=== PATIENT | female | born 1965 | race Caucasian/White ===

== ENCOUNTER → 2020-07-16 | Outpatient (CLI) | payer BC ==
--- NOTE | 2020-07-19 12:10 | RAD ---
EXAM: Bilateral screening mammogram. HISTORY: 54-year-old female presents for screening mammography. TECHNIQUE: Full-field digital craniocaudal and mediolateral oblique views of both breasts are obtaine d for evaluation. Computer aided detection was applied. COMPARISON: 07/15/2015 and 07/16/2017 BREAST PARENCHYMAL DENSITY: Level C - Heterogeneously dense. FINDINGS: There is no new suspicious mass, microcalcification or region of architectural distortion. There are stable areas of asymmetry within both breasts when allowing for differences in technique. IMPRESSION: BI-RADS Category 2: Benign finding(s). RECOMMENDATION: Annual mammography is recommended. If your mammogram demonstrates that you have dense breast tissue, which could hide abnormalities, and if you have other risk factors for breast cancer that have been identified, you might benefit from s upplemental screening tests that may be suggested by your ordering physician. Dense breast tissue, i n and of itself, is a relatively common condition. This information is not provided to cause undue c oncern, but rather to raise your awareness and to promote discussion with your physician regarding th e presence of other risk factors, in addition to dense breast tissue. A report of your mammography re sults will be sent to you and your physician. You should contact your physician if you have any ques tions or concerns regarding this report. Mammography is a sensitive method for finding small breast cancers, but it does not detect them all a nd is not a substitute for careful clinical examination. A negative mammogram does not negate a clin ically suspicious finding and should not result in delay in biopsying a clinically suspicious abnorma lity. PQRS compliance statement - Patient information was entered into a reminder system with a target due date for the next mammogram. "Our facility is accredited by the [employer] Mammography Program." Electronically signed by: Marissa Pro MD (07/19/2020 12:07 PM) [id number]
== END ==
LOC: MAMMO 10:08
PROVIDERS: ATTEND Family Medicine
DX: Z12.31 Encounter for screening mammogram for malignant neoplasm of breast (principal); N64.89 Other specified disorders of breast
CPT/HCPCS: 77067

== ENCOUNTER 2021-01-14 14:39 | Inpatient (IN) | payer BC ==
[~2021-01-14] VITALS: Ht 162.6 cm; Wt 82.1 kg
[2021-01-14] MEDS ORDERED: DEXAMETHASONE SOD PHOS 10 MG/ML VIAL. ONE (15:12)
[2021-01-14] MEDS ORDERED: DEXAMETHASONE SOD PHOS 10 MG/ML VIAL. IVP ONE (15:15)
--- NOTE | 2021-01-14 15:18 | RAD ---
Single view of the chest. 01/14/2021 3:05 PM Indication: Reason: cough / Spl. Instructions: / History: Comparison: None Findings: There are patchy interstitial and alveolar infiltrates throughout the bilateral lungs. The finding is concerning for an atypical or viral infectious process. Radiographic follow-up to ensure c omplete resolution recommended. Heart size is normal. Bony thorax is intact. No pneumothorax or effus ion is seen. IMPRESSION: Patchy interstitial alveolar infiltrates concerning for atypical or viral infectious proc ess. Short-term radiographic follow-up recommended. Electronically signed by: Joey Cruz MD (01/14/2021 3:16 PM) [id number]
[2021-01-14] MEDS ORDERED: IOHEXOL 350 MG/ML 100 ML VIAL. ONE (15:24)
[2021-01-14] MEDS ORDERED: IOHEXOL 350 MG/ML 100 ML VIAL. IV ONE (15:30)
--- NOTE | 2021-01-14 15:33 | PHYS DOC ---
Past History Past Medical History: Hypertension (CAROLYN LOZANO APRN) Past Surgical History: No Surgical History (CAROLYN LOZANO APRN) Smoking: Non-smoker Alcohol Use: Occasionally Drug Use: None (CAROLYN LOZANO APRN) General Adult EDM: Chief Complaint: FEVER HPI: HPI: Patient is a 55-year-old female that presents today with cough, shortness of air, and fever and chills since Sunday, January 05. Patient states she started feeling bad last Sunday having cough and chills over the past 9 days she has had increased weakness and fatigue, patient states she has a cough and it is productive with a thick yellow sputum. Patient is current oxygen saturation is 87% on room air, patient has mild amount of increased work of breathing no retractions or nasal flaring noted. (CAROLYN LOZANO APRN) Review of Systems: Review of Systems: Constitutional: chills Eyes: Denies change in visual acuity HENT: Denies nasal congestion or sore throat Respiratory: cough or shortness of breath Cardiovascular: Denies chest pain or edema GI: Denies abdominal pain, nausea, vomiting, bloody stools or diarrhea : Denies dysuria Musculoskeletal: Denies back pain or joint pain Integument: Denies rash Neurologic: General weakness Endocrine: Denies polyuria or polydipsia Lymphatic: Denies swollen glands Psychiatric: Denies depression or anxiety (CAROLYN LOZANO APRN) Current Medications: Current Meds: Current Medications Medications (Trade) Dose Ordered Sig/Delbert Start Time Stop Time Status Last Admin Dose Admin Dexamethasone Sodium Phosphate (Decadron) 10 mg STK-MED ONCE 01/14/21 15:12 01/14/21 15:13 DC Iohexol (Omnipaque 350 Mg/ml) 100 ml STK-MED ONCE 01/14/21 15:24 01/14/21 15:24 DC (CAROLYN LOZANO APRN) Allergies: Allergies: Allergies Coded Allergies Type Severity Reaction Last Updated Verified No Known Drug Allergies 01/14/21 No (CAROLYN LOZANO APRN) Physical Exam: PE: Constitutional: Well-nourished female, moderate distress, some increased work of breathing noted, was able to talk in complete sentences HENT: Normocephalic, atraumatic, bilateral external ears normal, oropharynx dry, no oral exudates, nose normal. [] Eyes: PERRLA, EOMI, conjunctiva normal, no discharge. [] Neck: Normal range of motion, no tenderness, supple, no stridor. [] Cardiovascular:Heart rate regular rhythm, no murmur [] Lungs & Thorax: Right lung sounds coarse with diminished in the bases, left lung sounds are coarse as well Abdomen: Bowel sounds normal, soft, no tenderness, no masses, no pulsatile masses. [] Skin: Warm, dry, no erythema, no rash. [] Back: No tenderness, no CVA tenderness. [] Extremities: No tenderness, no cyanosis, no clubbing, ROM intact, no edema. [] Neurologic: Alert and oriented X 3, normal motor function, normal sensory functi on, no focal deficits noted. [] Psychologic: Affect flat, judgement normal, mood normal. [] (CAROLYN LOZANO APRN) Current Patient Data: Labs: Laboratory Tests Test 01/14/21 15:20 01/14/21 15:25 White Blood Count 6.6 x10^3/uL Red Blood Count 4.97 x10^6/uL Hemoglobin 14.5 g/dL Hematocrit 42.4 % Mean Corpuscular Volume 85 fL Mean Corpuscular Hemoglobin 29 pg Mean Corpuscular Hemoglobin Concent 34 g/dL Red Cell Distribution Width 13.7 % Platelet Count 240 x10^3/uL Neutrophils (%) (Auto) 81 % Lymphocytes (%) (Auto) 14 % Monocytes (%) (Auto) 4 % Eosinophils (%) (Auto) 0 % Basophils (%) (Auto) 1 % Neutrophils # (Auto) 5.3 x10^3uL Lymphocytes # (Auto) 0.9 x10^3/uL Monocytes # (Auto) 0.3 x10^3/uL Eosinophils # (Auto) 0.0 x10^3/uL Basophils # (Auto) 0.0 x10^3/uL Sodium Level 129 mmol/L Potassium Level 2.9 mmol/L Chloride Level 87 mmol/L Carbon Dioxide Level 28 mmol/L Anion Gap 14 Blood Urea Nitrogen 21 mg/dL Creatinine 1.3 mg/dL Estimated GFR (Cockcroft-Gault) 42.8 Glucose Level 140 mg/dL Calcium Level 8.8 mg/dL Influenza Type A (Rapid) Negative Influenza Type B (Rapid) Negative SARS-CoV-2 Antigen (Rapid) Positive Current Medications Medications (Trade) Dose Ordered Sig/Delbert Route PRN Reason Start Time Stop Time Status Last Admin Dose Admin Dexamethasone Sodium Phosphate (Decadron) 10 mg 1X ONCE IVP 01/14/21 15:15 01/14/21 15:16 DC 01/14/21 15:31 Dexamethasone Sodium Phosphate (Decadron) 10 mg STK-MED ONCE .ROUTE 01/14/21 15:12 01/14/21 15:13 DC Iohexol (Omnipaque 350 Mg/ml) 100 ml 1X ONCE IV 01/14/21 15:30 01/14/21 15:31 DC 01/14/21 15:41 Iohexol (Omnipaque 350 Mg/ml) 100 ml STK-MED ONCE .ROUTE 01/14/21 15:24 01/14/21 15:24 DC Sodium Chloride 1,000 ml @ 1,000 mls/hr 1X ONCE IV 01/14/21 16:00 01/14/21 16:59 DC 01/14/21 16:23 Ceftriaxone Sodium 1 gm/ Sodium Chloride 50 ml @ 100 mls/hr 1X ONCE IV 01/14/21 16:15 01/14/21 16:44 DC 01/14/21 16:24 Ceftriaxone Sodium (Rocephin) 1 gm STK-MED ONCE .ROUTE 01/14/21 16:15 01/14/21 16:15 DC Sodium Chloride 50 ml @ As Directed STK-MED ONCE .ROUTE 01/14/21 16:15 01/14/21 16:15 DC Potassium Chloride (Klor-Con) 40 meq 1X ONCE PO 01/14/21 16:30 01/14/21 16:31 DC 01/14/21 16:26 Vital Signs: Vital Signs Date Time Temp Pulse Resp B/P (MAP) Pulse Ox O2 Delivery O2 Flow Rate FiO2 01/14/21 18:25 87 20 115/77 (90) 97 Nasal Cannula 2.0 01/14/21 17:55 88 20 95/46 (62) 94 Nasal Cannula 2.0 01/14/21 17:26 88 20 114/79 (91) 97 Nasal Cannula 2.0 01/14/21 16:56 83 20 110/76 (87) 97 Nasal Cannula 2.0 01/14/21 16:26 86 20 114/75 (88) 96 Nasal Cannula 2.0 01/14/21 15:56 87 20 97/67 (77) 92 Nasal Cannula 2.0 01/14/21 15:48 89 20 107/68 (81) 91 Nasal Cannula 2.0 01/14/21 14:55 98.3 95 20 121/73 (89) 91 Room Air Vital Signs Date Time Temp Pulse Resp B/P (MAP) Pulse Ox O2 Delivery O2 Flow Rate FiO2 01/14/21 14:55 98.3 95 20 121/73 (89) 91 Room Air (CAROLYN LOZANO CASTING MACHINE SERVICE OPERATOR) EKG: EKG: [] (CAROLYN LOZANO CASTING MACHINE SERVICE OPERATOR) Radiology/Procedures: Radiology/Procedures: PROCEDURE: CHEST AP ONLY Single view of the chest. 01/14/2021 3:05 PM Indication: Reason: cough / Spl. Instructions: / History: Comparison: None Findings: There are patchy interstitial and alveolar infiltrates throughout the bilateral lungs. The finding is concerning for an atypical or viral infectious process. Radiographic follow-up to ensure complete resolution recommended. Heart size is normal. Bony thorax is intact. No pneumothorax or effusion is seen. IMPRESSION: Patchy interstitial alveolar infiltrates concerning for atypical or viral infectious process. Short-term radiographic follow-up recommended. Electronically signed by: Joey Cruz MD (01/14/2021 3:16 PM) [id number] REASON: cough, SOA, 100MLS OMNI 350 PROCEDURE: CT ANGIOGRAPHY CHEST EXAMINATION: CT Pulmonary Angiogram with IV contrast INDICATION: Reason: cough, SOA, 100MLS OMNI 350 / Spl. Instructions: / History: COMPARISON: Same day chest radiograph TECHNIQUE: Using helical technique, CT data from the thoracic inlet through the upper abdomen was obtained during rapid IV contrast infusion. The examination was timed to the pulmonary arterial system to generate a CT angiographic study. 3D MIPS, sagittal and coronal reformats were generated. FINDINGS: Vascular: The study is diagnostic to the level of the segmental pulmonary arteries. Exam is degraded secondary to respiratory motion. Pulmonary arteries: No evidence of acute or chronic pulmonary embolism. The pulmonary arteries are normal in size. Thoracic aorta: Normal in size. Coronary arteries: Normal origins. Mild calcified coronary atherosclerosis. Systemic veins: Within normal limits. Heart: The heart is normal in size. Trace pericardial effusion. Chest: Lungs/Pleura: Diffuse scattered and confluent bilateral groundglass opacities predominantly in a peripheral distribution in a apical basilar gradient. No pleural effusion or focal pleural lesion. Central airways patent. Mediastinum: No pathologic mediastinal or hilar adenopathy The visualized thyroid and the esophagus are unremarkable Axilla/Soft Tissue: No supraclavicular or axillary adenopathy. Regional soft tissues are within normal limits. Upper abdomen: The visualized upper abdomen appears unremarkable. There is diffuse hepatic steatosis. Bones: No evidence of acute fractures or aggressive osseous lesions. IMPRESSION: 1. No pulmonary arterial thromboembolic disease to the level of the segmental pulmonary arteries. 2. Commonly reported imaging features of (COVID-19) pneumonia are present. Other processes such as influenza pneumonia and organizing pneumonia, as can be seen with drug toxicity and connective tissue disease, can cause a similar imaging pattern. 2. PRQS compliance statement - One or more of the following individualized dose reduction techniques were utilized for this study: 1. Automated exposure control 2. Adjustment of the mA and/or kV according to patient size 3. Use of iterative reconstruction technique Electronically signed by: Tee Anand DO (01/14/2021 4:00 PM) [facility] (CAROLYN LOZANO APRN) Heart Score: C/O Chest Pain: N/A Risk Factors: Risk Factors: DM, Current or recent (<one month) smoker, HTN, HLP, family history of CAD, obesity. Risk Scores: Score 0 - 3: 2.5% MACE over next 6 weeks - Discharge Home Score 4 - 6: 20.3% MACE over next 6 weeks - Admit for Clinical Observation Score 7 - 10: 72.7% MACE over next 6 weeks - Early Invasive Strategies (CAROLYN LOZANO CASTING MACHINE SERVICE OPERATOR) Course & Med Decision Making: Course & Med Decision Making Pertinent Labs and Imaging studies reviewed. (See chart for details) Spoke to Dr. Henson about admitting patient to patient's need for oxygen therapy he is agreeable to this patient was admitted and will be placed on DVT pr ophylaxis, and oxygen therapy (CAROLYN LOZANO APRN) Dragon Disclaimer: Dragon Disclaimer: This electronic medical record was generated, in whole or in part, using a voice recognition dictation system. (CAROLYN LOZANO APRN) Attending Co-Sign The patient was seen and interviewed as well as examined at the bedside. The chart was reviewed. The case was discussed. Agree with the plan of care. (JADE HOOD DO) Departure Departure: Impression: Primary Impression: COVID-19 Additional Impressions: Hypoxemia Hypoxemia requiring supplemental oxygen Disposition: ADMITTED INPATIENT Condition: GUARDED Referrals: LENA PARRA (PCP) CAROLYN LOZANO APRN Jan 14, 2021 15:33 JADE HOOD DO Jan 15, 2021 06:55
[2021-01-14 15:54] LABS: BASO % 1 % (0-3); EOS % 0 % (0-3); HEMATOCRIT 42.4 % (36.0-47.0); HEMOGLOBIN 14.5 g/dL (12.0-15.5); LYMPH # 0.9 x10^3/uL (1.0-4.8); LYMPH % 14 % (24-48); MEAN CORPUSCULAR HEMOGLOBIN 29 pg (25-35); MEAN CORPUSCULAR HGB CONC 34 g/dL (31-37); MEAN CORPUSCULAR VOLUME 85 fL (79-100); MONO # 0.3 x10^3/uL (0.0-1.1); MONO % 4 % (0-9); NEUT # 5.3 x10^3uL (1.8-7.7); NEUT % 81 % (31-73); PLATELET COUNT 240 x10^3/uL (140-400); RED BLOOD COUNT 4.97 x10^6/uL (3.50-5.40); RED CELL DISTRIBUTION WIDTH 13.7 % (11.5-14.5); WHITE BLOOD COUNT 6.6 x10^3/uL (4.0-11.0)
[2021-01-14 16:00] LABS: CALCIUM 8.8 mg/dL (8.5-10.1); CREATININE 1.3 mg/dL (0.6-1.0); GFR 42.8
[2021-01-14] MEDS ORDERED: IV NORMAL SALINE 1,000ML 1,000 ML IV ONE (16:00)
--- NOTE | 2021-01-14 16:03 | RAD ---
EXAMINATION: CT Pulmonary Angiogram with IV contrast INDICATION: Reason: cough, SOA, 100MLS OMNI 350 / Spl. Instructions: / History: COMPARISON: Same day chest radiograph TECHNIQUE: Using helical technique, CT data from the thoracic inlet through the upper abdomen was obt ained during rapid IV contrast infusion. The examination was timed to the pulmonary arterial system t o generate a CT angiographic study. 3D MIPS, sagittal and coronal reformats were generated. FINDINGS: Vascular: The study is diagnostic to the level of the segmental pulmonary arteries. Exam is degraded secondary to respiratory motion. Pulmonary arteries: No evidence of acute or chronic pulmonary embolism. The pulmonary arteries are no rmal in size. Thoracic aorta: Normal in size. Coronary arteries: Normal origins. Mild calcified coronary atherosclerosis. Systemic veins: Within normal limits. Heart: The heart is normal in size. Trace pericardial effusion. Chest: Lungs/Pleura: Diffuse scattered and confluent bilateral groundglass opacities predominantly in a briana pheral distribution in a apical basilar gradient. No pleural effusion or focal pleural lesion. Centr al airways patent. Mediastinum: No pathologic mediastinal or hilar adenopathy The visualized thyroid and the esophagus a re unremarkable Axilla/Soft Tissue: No supraclavicular or axillary adenopathy. Regional soft tissues are within chauncey l limits. Upper abdomen: The visualized upper abdomen appears unremarkable. There is diffuse hepatic steatosis. Bones: No evidence of acute fractures or aggressive osseous lesions. IMPRESSION: 1. No pulmonary arterial thromboembolic disease to the level of the segmental pulmonary arteries. 2. Commonly reported imaging features of (COVID-19) pneumonia are present. Other processes such as in fluenza pneumonia and organizing pneumonia, as can be seen with drug toxicity and connective tissue d isease, can cause a similar imaging pattern. 2. PRQS compliance statement - One or more of the following individualized dose reduction techniques were utilized for this study: 1. Automated exposure control 2. Adjustment of the mA and/or kV according to patient size 3. Use of iterative reconstruction technique Electronically signed by: Tee Anand DO (01/14/2021 4:00 PM) [facility]
[2021-01-14 16:05] LABS: INFLUENZA A PATIENT NEGATIVE (NEGATIVE); INFLUENZA B PATIENT NEGATIVE (NEGATIVE)
[2021-01-14 16:11] LABS: POTASSIUM 2.9 mmol/L (3.5-5.1)
[2021-01-14] MEDS ORDERED: cefTRIAXone SODIUM 1 GM VIAL ONE (16:15)
[2021-01-14] MEDS ORDERED: IV NORMAL SALINE 50ML 50 ML ONE (16:15)
[2021-01-14] MEDS ORDERED: POTASSIUM CHLORIDE 20 MEQ TABLET.ER. PO ONE (16:30)
[2021-01-14] MEDS ORDERED: AZITHROMYCIN 250 MG TABLET. PO ONE (17:30)
[2021-01-14] MEDS ORDERED: ENOXAPARIN ** NOTE DOSE ** SYRINGE SQ ONE (17:30)
[2021-01-14] MEDS ORDERED: ENOXAPARIN 40 MG/0.4 ML SYRINGE. SQ ONE (17:45)
--- NOTE | 2021-01-14 19:06 | NUR ---
The patient, ALEJANDRA BACON, 55 y/o, F admitted by MEGA BOWLING MD, was given written information regarding hospital policies, unit procedures and contact persons. Valuables were checked and left with patient.
[2021-01-14 20:00] VITALS: BP 110/75
[2021-01-14] MEDS: POTASSIUM CL 40MEQ IN 0.9%NACL 1,000 ML IV SCH (21:42)
[2021-01-14 21:55] VITALS: BP 108/67
[2021-01-15 06:59] LABS: BASO % 0 % (0-3); EOS % 0 % (0-3); HEMATOCRIT 40.1 % (36.0-47.0); HEMOGLOBIN 13.5 g/dL (12.0-15.5); LYMPH # 0.6 x10^3/uL (1.0-4.8); LYMPH % 19 % (24-48); MEAN CORPUSCULAR HEMOGLOBIN 29 pg (25-35); MEAN CORPUSCULAR HGB CONC 34 g/dL (31-37); MEAN CORPUSCULAR VOLUME 86 fL (79-100); MONO # 0.3 x10^3/uL (0.0-1.1); MONO % 8 % (0-9); NEUT # 2.5 x10^3uL (1.8-7.7); NEUT % 74 % (31-73); PLATELET COUNT 232 x10^3/uL (140-400); RED BLOOD COUNT 4.66 x10^6/uL (3.50-5.40); RED CELL DISTRIBUTION WIDTH 13.8 % (11.5-14.5); WHITE BLOOD COUNT 3.4 x10^3/uL (4.0-11.0)
[2021-01-15 07:04] LABS: ALBUMIN 2.3 g/dL (3.4-5.0); ALBUMIN/GLOBULIN RATIO 0.6 (1.0-1.7); CALCIUM 8.6 mg/dL (8.5-10.1); POTASSIUM 3.7 mmol/L (3.5-5.1); TOTAL BILIRUBIN 0.4 mg/dL (0.2-1.0); TOTAL PROTEIN 6.3 g/dL (6.4-8.2)
[2021-01-15 07:52] VITALS: BP 111/76
[2021-01-15] MEDS: DEXAMETHASONE SOD PHOS 4 MG/ML VIAL. IVP SCH (09:00)
[2021-01-15] MEDS: POTASSIUM CL 40MEQ IN 0.9%NACL 1,000 ML IV SCH ×3 (10:05→21:44)
[2021-01-15 11:00] VITALS: BP 115/82
[2021-01-15] MEDS ORDERED: PROG100C10 PO (11:40)
[2021-01-15 15:58] VITALS: BP 114/77
--- NOTE | 2021-01-15 18:19 | HP ---
DATE OF SERVICE: 01/15/2021 ADMIT DATE: 01/14/2021 HISTORY OF PRESENT ILLNESS: The patient is a 55-year-old female patient who presented to the Emergency Room with a complaint of fever, cough, shortness of air and fever and chills since Sunday, 01/05. The patient stated that she started feeling bad last Sunday, having cough and chills over the past 9 days and she has had increased weakness, fatigue. Had had a cough that is productive of thick yellow sputum. On arrival to the Emergency Room, her oxygen saturation was 97% on room air. She has mild amount of increased work of breathing, no retractions or nasal flaring noted. She apparently was extensively investigated in the Emergency Room, has had lab work and imaging studies. Her lab work showed that her white cell count was normal at 6.6. Her chemistry showed that she has hyponatremia, hypokalemia, hypochloremia and impaired kidney function. Her blood sugar was also slightly high at 140. Her coronavirus rapid testing was positive. However, her influenza A and B were negative. Had had a chest x-ray and CT angio. Her chest x-ray showed that the patient has patchy interstitial alveolar infiltrate concerning for atypical or viral infectious process. Her CT angio showed no pulmonary arterial thromboembolic disease to the level of the segmental pulmonary arteries. Commonly reported the imaging features of COVID-19 pneumonia are present. Other processes such as influenza pneumonia or organizing pneumonia can also be seen with drug toxicity and connective tissue disease, can cause a similar imaging pattern. The patient was admitted with COVID-19 pneumonia, acute hypoxic respiratory failure. She has also multiple electrolyte abnormalities including hyponatremia, hypokalemia and impaired kidney function. PAST MEDICAL HISTORY: Unremarkable. PAST SURGICAL HISTORY: Also unremarkable. ALLERGIES: She has no known drug allergies. MEDICATIONS: She is currently on progesterone 100 mg capsule once a day for 30 days as a hormone replacement for postmenopausal symptoms. FAMILY HISTORY: She has one brother and 1 sister, both older and healthy. Her mother at age of 78 because of ovarian cancer. Her father yesterday at the age of 84 because of complication of COPD, atrial fibrillation and congestive heart failure. SOCIAL HISTORY: She is , has 1 stepson. She never smoked. Drinks alcohol occasionally. Does not use any drugs. 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 REVIEW OF SYSTEMS: As per history of present illness. PHYSICAL EXAMINATION: GENERAL: On arrival to the Emergency Room, the patient was slightly tachypneic, but there was no pallor, jaundice, cyanosis or thyromegaly. No jugular venous distention. No limb edema. VITAL SIGNS: Her heart rate was 95, blood pressure is 121/73, temperature was 98.3, respiratory rate was 20 and oxygen saturation was 91% on room air. HEAD, EYES, EARS, NOSE, AND THROAT: Showed she is normocephalic, atraumatic. NECK: Supple. HEART: Normal first and second heart sounds. No gallop, rub or murmur. CHEST: Clear to auscultation, no crepitation or rhonchi. The patient has central trachea, equal bilateral chest expansion, air entry, vesicular breath sounds with crepitation on both sides posteriorly. I could not appreciate any rhonchi. ABDOMEN: Distended, soft, nontender. NEUROLOGIC: She was alert, oriented x 3 with no obvious sensory or motor deficit. PSYCHOLOGICAL: Her affect, judgment and mood were normal. LABORATORY WORK: On admission showed a serum sodium of 129, potassium 2.9, chloride 87, bicarbonate 28, anion gap of 14, BUN 21, creatinine 1.3. Estimated GFR was 42 mL per minute. Her glucose was 140, calcium was 8.8. Her white cell count was 6600, hemoglobin 14.5, hematocrit 42, MCV 85 and platelet count 240,000 with a manual differential showed 81% polymorphs, 14% lymphocytes. We did send blood for culture and sensitivity. The result was still pending at the time of this dictation. ASSESSMENT AND PLAN: In summary, this is a 55-year-old female patient who was admitted with: 1. COVID-19 pneumonia. 2. Acute hypoxic respiratory failure. 3. Multiple electrolyte abnormalities including hyponatremia, hypokalemia as well as impaired kidney function and hypochloremia. The patient was started on dexamethasone together with Zithromax, ceftriaxone and Lovenox together with normal saline with potassium chloride to replenish her electrolytes. She was also started on oxygen at 2 liters per nasal cannula, maintaining her oxygen saturation time at 97%. BELA/SUJEY DR: Lana TID: [id number]
[2021-01-15 19:07] VITALS: BP 110/79
[2021-01-15] MEDS: AZITHROMYCIN 250 MG TABLET. PO SCH (20:27)
[2021-01-15] MEDS: ENOXAPARIN 40 MG/0.4 ML SYRINGE. SQ SCH (20:27)
--- NOTE | 2021-01-15 20:33 | NUR ---
Consent signed Yes Previous PICC placement No Past Medical/Surgical history and current diagnosis reviewed Yes Patient Medical /Surgical History Related to PICC line placement None Special considerations for PICC line placement None small vessels in right arm, placed in left arm with large enough vessel. PICC placement indication skilled nursing antibiotic usage, Name of PICC Nurse Marissa Gore RN
--- NOTE | 2021-01-15 20:35 | NUR ---
Procedure: Following complete explanation of the PICC procedure including the indications, risks, and potential complications, informed consent was obtained. The possibility for infection was discussed along with signs, symptoms, and prevention. All the patient's questions were answered. IV Device Protocol was used. Written and verbal patient education was provided. Hand hygiene performed. Standardized central line checklist was utilized. The patient was placed in the supine position, the left arm was prepped with chlorhexidine and patient draped with maximum sterile barrier. 1 mL 1% lidocaine was infiltrated into the skin to provide local anesthesia. A thorough assessment of the left upper extremity completed. Using real-time ultrasound guidance and standardized micro puncture set, the basilic vein was punctured and a peel away sheath was placed using the modified Seldinger technique. A tip location device was used to ensure adequate catheter placement. The catheter was secured using a securement device and an antimicrobial patch was applied directly on the insertion site followed by a transparent dressing. All ports withdraw blood and flush without resistance. Patient tolerated the procedure without apparent complication. A dual Lumen Power PICC placement successful and uncomplicated. Placement verified by EKG tip confirmation system with green p wave and kanchan observed. Tip located in the low SVC per 3CG Complications:
[2021-01-15 23:04] VITALS: BP 103/75
--- NOTE | 2021-01-16 02:43 | PN ---
SUBJECTIVE: The patient is resting, slightly propped up in bed, in no apparent respiratory distress. On questioning her, she continued to have cough with yellowish sputum. Denied any chest pain. Did complain of some shortness of breath. Denied any chills, rigors or fever. PHYSICAL EXAMINATION: GENERAL: When I examined her, she looked well and was clearly in no apparent respiratory distress. No pallor, jaundice, cyanosis or thyromegaly. No jugular venous distention. No limb edema. VITAL SIGNS: Her heart rate was 78, blood pressure was 114/77, temperature was 98.5, respiratory rate was 18 and oxygen saturation was 94% on 4 liters of oxygen. HEAD, EYES, EARS, NOSE, AND THROAT: Normocephalic, atraumatic. NECK: Supple. HEART: Showed normal first and second heart sounds. No gallop, rub or murmur. CHEST: Showed central trachea, equal bilateral expansion and air entry, vesicular breath sounds with bilateral basal crepitation posteriorly. I could not appreciate any rhonchi. ABDOMEN: Soft, nontender. NEUROLOGIC: She is grossly intact. Her intake was 1350, no output was recorded. LABORATORY DATA: This morning showed her white cell count is down to 3400, hemoglobin 13.5, hematocrit 40, MCV 86, platelet count 232,000 with normal manual differential. Her chemistry showed that all her electrolyte has improved. Her serum sodium is up to 137, potassium 3.7, chloride 97, bicarbonate 28, anion gap of 12, BUN 21, creatinine 1, estimated GFR was 58 mL per minute. Her glucose was 211, calcium was 8.6. Total bilirubin and alkaline phosphatase normal. AST, ALT slightly elevated. Total protein 6.3, albumin was 2.3. ASSESSMENT: 1. COVID-19 pneumonia. 2. Questionable superimposed community-acquired pneumonia. 3. Acute hypoxic respiratory failure. 4. Hyponatremia, resolved. 5. Hypokalemia, resolved. 6. Acute kidney injury, resolved. PLAN: Her oxygen requirement is slightly elevated. She has also mild leukopenia and transaminitis. We will monitor her lab work on a daily basis. We will continue obviously with antibiotic, dexamethasone, and Lovenox. BALTAZAR DR: Lana TID: [id number]
[2021-01-16 04:55] VITALS: BP 114/81
[2021-01-16 07:00] VITALS: BP 111/76
[2021-01-16 07:29] LABS: BASO % 0 % (0-3); EOS % 0 % (0-3); HEMOGLOBIN 12.7 g/dL (12.0-15.5); LYMPH # 0.8 x10^3/uL (1.0-4.8); LYMPH % 11 % (24-48); MEAN CORPUSCULAR HEMOGLOBIN 29 pg (25-35); MEAN CORPUSCULAR HGB CONC 33 g/dL (31-37); MEAN CORPUSCULAR VOLUME 87 fL (79-100); MONO # 0.6 x10^3/uL (0.0-1.1); MONO % 8 % (0-9); NEUT # 6.4 x10^3uL (1.8-7.7); NEUT % 81 % (31-73); PLATELET COUNT 285 x10^3/uL (140-400); RED BLOOD COUNT 4.38 x10^6/uL (3.50-5.40); RED CELL DISTRIBUTION WIDTH 13.7 % (11.5-14.5); WHITE BLOOD COUNT 7.9 x10^3/uL (4.0-11.0)
[2021-01-16 07:38] LABS: ALBUMIN 2.2 g/dL (3.4-5.0); ALBUMIN/GLOBULIN RATIO 0.6 (1.0-1.7); CALCIUM 8.1 mg/dL (8.5-10.1); CREATININE 1.1 mg/dL (0.6-1.0); POTASSIUM 3.8 mmol/L (3.5-5.1); TOTAL BILIRUBIN 0.3 mg/dL (0.2-1.0)
[2021-01-16] MEDS: PROGESTERONE MICRONIZED 100 MG PO SCH (10:27)
[2021-01-16] MEDS: DEXAMETHASONE SOD PHOS 4 MG/ML VIAL. IVP SCH (10:27)
[2021-01-16] MEDS: POTASSIUM CL 40MEQ IN 0.9%NACL 1,000 ML IV SCH (10:33)
[2021-01-16 11:00] VITALS: BP 115/82
[2021-01-16 16:34] VITALS: BP 114/77
--- NOTE | 2021-01-16 17:03 | PN ---
DATE: 01/16/2021 SUBJECTIVE: The patient is sitting slightly propped up, eating her lunch comfortably, in no apparent distress. On questioning her, she continued to have cough with yellowish sputum. However, she denied any chest pain. She did complain of shortness of breath on exertion. PHYSICAL EXAMINATION: GENERAL: When I examined her, she looked well and was clearly in no apparent respiratory distress. No pallor, jaundice, cyanosis or thyromegaly. No jugular venous distention. No lower limb edema. VITAL SIGNS: Her heart rate was 81, blood pressure 114/81, temperature 97.5, respiratory rate was 18 and oxygen saturation was 96% on 4 liters of oxygen . HEAD, EYES, EARS, NOSE AND THROAT: Normocephalic, atraumatic. NECK: Supple. HEART: Normal first and second heart sounds, no gallop or murmur. CHEST: Showed central trachea, equal bilateral chest expansion, air entry, vesicular breath sounds with bilateral basal crepitations posteriorly. I could not appreciate any rhonchi. ABDOMEN: Distended, soft, nontender. NEUROLOGIC: She was grossly intact. Her intake was 1350, no output was recorded. LABORATORY DATA: This morning showed a white cell count 7,900, hemoglobin 12.7, hematocrit 38, MCV 87 and platelet count 285,000. Her chemistry showed a serum sodium 138, potassium 3.8, chloride 102, bicarbonate 27, anion gap of 9, BUN 27, creatinine 1.1. Estimated GFR was 52 mL per minute. Her glucose 164, calcium was 8.1. Total bilirubin and alkaline phosphatase normal. AST, ALT slightly elevated. Total protein was 6, albumin 2.2. ASSESSMENT: 1. COVID-19 pneumonia. 2. Acute hypoxic respiratory failure. 3. Questionable superimposed community-acquired pneumonia. 4. Hyponatremia, resolved. 5. Hypokalemia, resolved. 6. Acute kidney injury, resolved. PLAN: To continue with IV antibiotic in the form of Zithromax and ceftriaxone. Continue with dexamethasone. Continue with IV fluid and continue with Lovenox. We will monitor her progress on a daily basis and so far, her oxygen saturation seems to be much improved today at 96% on 4 liters. BELA/LYNDSEY/OMARI DR: Lana TID: [id number]
[2021-01-16 19:00] VITALS: BP 118/83
[2021-01-16] MEDS: AZITHROMYCIN 250 MG TABLET. PO SCH (20:03)
[2021-01-16] MEDS: ENOXAPARIN 40 MG/0.4 ML SYRINGE. SQ SCH (20:04)
[2021-01-16 23:31] VITALS: BP 128/86
[2021-01-17] MEDS: POTASSIUM CL 40MEQ IN 0.9%NACL 1,000 ML IV SCH ×2 (00:46→15:25)
--- NOTE | 2021-01-17 03:15 | NUR ---
Oxygen saturation decreases to quickly to 84-85% on 4L O2 via nasal canula with any exertion, requires >15-20 min to recover.
[2021-01-17 06:25] LABS: BASO % 0 % (0-3); EOS % 0 % (0-3); HEMATOCRIT 36.9 % (36.0-47.0); HEMOGLOBIN 12.1 g/dL (12.0-15.5); LYMPH # 1.1 x10^3/uL (1.0-4.8); LYMPH % 16 % (24-48); MEAN CORPUSCULAR HEMOGLOBIN 29 pg (25-35); MEAN CORPUSCULAR HGB CONC 33 g/dL (31-37); MEAN CORPUSCULAR VOLUME 88 fL (79-100); MONO # 0.6 x10^3/uL (0.0-1.1); MONO % 9 % (0-9); NEUT # 5.5 x10^3uL (1.8-7.7); NEUT % 76 % (31-73); PLATELET COUNT 309 x10^3/uL (140-400); RED BLOOD COUNT 4.19 x10^6/uL (3.50-5.40); RED CELL DISTRIBUTION WIDTH 14.3 % (11.5-14.5); WHITE BLOOD COUNT 7.3 x10^3/uL (4.0-11.0)
[2021-01-17 06:36] LABS: ALBUMIN 2.1 g/dL (3.4-5.0); ALBUMIN/GLOBULIN RATIO 0.6 (1.0-1.7); CREATININE 0.8 mg/dL (0.6-1.0); POTASSIUM 4.1 mmol/L (3.5-5.1); TOTAL BILIRUBIN 0.3 mg/dL (0.2-1.0); TOTAL PROTEIN 5.6 g/dL (6.4-8.2)
[2021-01-17 07:00] VITALS: BP 128/86
[2021-01-17] MEDS ORDERED: CHOLECALCIFEROL (VITAMIN D3) 50,000 UNIT CAPSULE PO SCH (10:15)
[2021-01-17] MEDS: BUDESONIDE 0.5 MG/2 ML NEBU NEB SCH ×2 (10:33→22:01)
[2021-01-17] MEDS: PROGESTERONE MICRONIZED 100 MG PO SCH (10:33)
[2021-01-17] MEDS: ZINC SULFATE 220 MG CAPSULE. PO SCH (10:33)
[2021-01-17] MEDS: FAMOTIDINE 20 MG TABLET PO SCH ×2 (10:33→20:20)
[2021-01-17] MEDS: DEXAMETHASONE SOD PHOS 4 MG/ML VIAL. IVP SCH (10:33)
[2021-01-17 11:00] VITALS: BP 133/90
[2021-01-17] MEDS: ASCORBIC ACID 1,000 MG TABLET PO SCH ×2 (12:00→20:20)
[2021-01-17] MEDS: ACETAMINOPHEN 325 MG TABLET PO PRN (14:17)
[2021-01-17 19:00] VITALS: BP 122/81
[2021-01-17] MEDS: AZITHROMYCIN 250 MG TABLET. PO SCH (20:20)
[2021-01-17] MEDS: ENOXAPARIN 40 MG/0.4 ML SYRINGE. SQ SCH (20:21)
[2021-01-17] MEDS: LACTOBACILLUS RHAMNOSUS GG 1 CAPSULE. PO SCH (21:00)
--- NOTE | 2021-01-17 21:07 | PN ---
DATE: 01/17/2021 SUBJECTIVE: The patient is sitting slightly propped up in bed, eating her lunch comfortably, in no apparent distress. On questioning her, she is feeling generally better. Did have some cough with scanty sputum. Denied any chest pain or shortness of breath. She is maintaining her oxygen saturation at 96% on 3 liters of oxygen by nasal cannula. PHYSICAL EXAMINATION: GENERAL: When I examined her, she looked pale, not jaundiced or cyanosed from thyromegaly. No jugular venous distention. No limb edema. VITAL SIGNS: Her heart rate was 71, blood pressure is 118/83, temperature was 98.1, respiratory rate was 20 and oxygen saturation was 96% on 3 liters of oxygen. HEAD, EYES, EARS, NOSE AND THROAT: Normocephalic, atraumatic. NECK: Supple. HEART: Showed normal first and second heart sounds. No gallop, rub or murmur. CHEST: Shows central trachea. Equal bilateral chest expansion, air entry, vesicular breath sounds. She has actually bilateral basal crepitation. I could not appreciate any rhonchi. ABDOMEN: Distended, soft, nontender. NEUROLOGIC: She was grossly intact. Her intake was 1100, no output was recorded. LABORATORY DATA: As of this morning, her white cell count was 7300, hemoglobin 12, hematocrit 36, MCV 88 and platelet count of 309,000. Her serum sodium was 143, potassium 4.1, chloride 108, bicarbonate 27, anion gap of 8. BUN 18, creatinine 0.8. Estimated GFR was 75 mL/minute. Her glucose was 128, calcium was 8. Total bilirubin, alkaline phosphatase normal. AST, ALT are slightly elevated. Her total protein was 5.6, albumin was 2.1. ASSESSMENT: 1. COVID-19 pneumonia. 2. Acute hypoxic respiratory failure. 3. Questionable superimposed community-acquired pneumonia. 4. Hyponatremia, resolved. 5. Hypokalemia, resolved. 6. Acute kidney injury, resolved. PLAN: Continue with IV antibiotic in the form of Zithromax and ceftriaxone. Continue with dexamethasone. Continue with oxygen supplementation, titrate as tolerated. ANTHONY DR: Lana TID: [id number]
[2021-01-17 23:09] VITALS: BP 146/91
[2021-01-18] MEDS: POTASSIUM CL 40MEQ IN 0.9%NACL 1,000 ML IV SCH ×2 (04:45→05:38)
[2021-01-18 06:02] VITALS: BP_SYST 146; BP_SYST 158; BP_DIAS 91; BP_DIAS 96
[2021-01-18] MEDS: PROGESTERONE MICRONIZED 100 MG PO SCH (09:00)
[2021-01-18] MEDS: LACTOBACILLUS RHAMNOSUS GG 1 CAPSULE. PO SCH (10:56)
[2021-01-18] MEDS: DEXAMETHASONE SOD PHOS 4 MG/ML VIAL. IVP SCH (10:56)
[2021-01-18] MEDS: ZINC SULFATE 220 MG CAPSULE. PO SCH (10:57)
[2021-01-18] MEDS: FAMOTIDINE 20 MG TABLET PO SCH (10:57)
[2021-01-18] MEDS: ACETAMINOPHEN 325 MG TABLET PO PRN (10:57)
[2021-01-18] MEDS: BUDESONIDE 0.5 MG/2 ML NEBU NEB SCH (10:58)
[2021-01-18] MEDS: ASCORBIC ACID 1,000 MG TABLET PO SCH (10:58)
[2021-01-18] MEDS ORDERED: DEXA6TAB6 PO (14:45)
[2021-01-18] MEDS ORDERED: IPRA4AER INH (14:45)
[2021-01-18] MEDS ORDERED: CEFD300C PO (14:45)
--- NOTE | 2021-01-18 15:19 | NUR ---
Patient was discharged to home. Patient discharge information was reviewed with patient with patient verbalizing understanding of information. Patient is going home on oxygen. Home oxygen use handout education was provided and reviewed with the patient with patient verbalizing understanding. Patient left the unit on 3L NC via wheelchair escorted by this RN. Patient was transported home by her via private vehicle.
[2021-01-19] MEDS ORDERED: CHOLECALCIFEROL (VITAMIN D3) 1,000 UNIT TABLET PO SCH (09:00)
== END 2021-01-18 15:24 | disposition home or self-care (01) | DRG 177 ==
LOC: ER 14:39 → ICU 17:21
PROVIDERS: ADMIT Internal Medicine; ATTEND Internal Medicine
DX: U07.1 COVID-19 (principal); J12.82 Pneumonia due to coronavirus disease 2019; J96.01 Acute respiratory failure with hypoxia; E87.1 Hypo-osmolality and hyponatremia; N17.9 Acute kidney failure, unspecified; E87.6 Hypokalemia; E87.8 Other disorders of electrolyte and fluid balance, not elsewhere classified; I10 Essential (primary) hypertension; Z82.5 Family history of asthma and other chronic lower respiratory diseases; Z82.49 Family history of ischemic heart disease and other diseases of the circulatory system; Z80.41 Family history of malignant neoplasm of ovary
CPT/HCPCS: 36415; 71045; 71275; 80048; 80053; 85025; 87040; 87426; 87804; 96365; 96366; 96375; J0696; J1100; J1650; Q9967; 99285-25; J7030